=== PATIENT | male | born 1990 | race Caucasian/White ===

== ENCOUNTER 2023-03-28 14:01 | Outpatient (CLI) | payer OTHER ==
--- NOTE | 2023-03-29 12:51 | MRI Report ---
PROCEDURE: KNEE WO - LT INDICATIONS: KNEE SPRAIN TECHNIQUE: Noncontrast sagittal PD fast spin echo and T2 fast spin echo with fat saturation, sagittal 3-D spoile d GE with fat saturation; coronal T1 spin echo and PD fast spin echo with fat saturation, and axial P D fast spin echo with fat saturation through the knee. COMPARISON: None. FINDINGS: Image quality: Excellent. Anterior cruciate ligament: Intact. Posterior cruciate ligament: Intact. Medial collateral ligament: Edema adjacent to the proximal medial collateral ligament is most likely secondary to an adjacent medial patellofemoral ligament injury rather than a medial collateral ligam ent sprain. Lateral collateral ligament: Intact. Medial meniscus: Intact. Lateral meniscus: Intact. Medial and lateral tendons: The semimembranosus tendon insertions appear intact. Visualized portion s of the pes anserinus tendons appear normal. The popliteus tendon appears intact. Iliotibial band appears normal. Anterior structures: The patellar tendon and the distal quadriceps tendon appear intact. Mildly db enitally shallow trochlear groove is seen with lateral patellar tilting but no patellar subluxation. The tibial tubercle-trochlear groove distance is within normal limits. The medial patellofemoral liga ment appears attenuated and is not well-visualized at its femoral insertion, suspicious for high-grad e partial versus complete tearing. Bones: Mild irregular bone injury is seen at the anteromedial aspect of the patella. There is also o sseous edema at the anterolateral aspect of the lateral femoral condyle with mild depression of the o verlying cortex, suspicious for mild impaction fracture. Incomplete fracture line is best seen on sag ittal sequences. Medial femorotibial cartilage: Intact. Lateral femorotibial cartilage: Intact. Patellofemoral cartilage: Intact. Soft tissues: Moderate to large joint effusion is seen with fluid fluid level that is suspicious for hemarthrosis. A small medial popliteal cyst is noted. The musculature surrounding the knee is irvin l in bulk. IMPRESSION: 1.Findings related to recent episode of transient lateral patellar dislocation. A minimally depressed impaction fracture is seen at the anterolateral aspect of the lateral femoral condyle. Small osseous contusion at the inferomedial patella. 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 The tibial tubercle and ventricular groove distance is within normal limits. 3.Suspected high-grade partial or complete tearing of the medial patellofemoral ligament near its fem oral attachment with surrounding soft tissue edema. 4.Cruciate and collateral ligaments are intact. No meniscal tear. No focal cartilage defect is seen. 5.Moderate to large hemarthrosis. Small medial popliteal cyst. Reviewed by: Hosea Varma MD on 03/29/2023 12:49 PM PDT Approved by: Hosea Varma MD on 03/29/2023 12:49 PM PDT Station ID: [id number]
== END 2023-03-28 14:02 | disposition home or self-care (01) ==
LOC: DI 14:01
PROVIDERS: ATTEND Student in an Organized Health Care Education/Training Program
DX: S72.422A Displaced fracture of lateral condyle of left femur, initial encounter for closed fracture (principal); S80.02XA Contusion of left knee, initial encounter; M71.22 Synovial cyst of popliteal space [Baker], left knee; M25.062 Hemarthrosis, left knee; M25.462 Effusion, left knee